=== PATIENT | male | born 1945 | race Caucasian/White ===

== ENCOUNTER 2020-07-21 11:55 | Outpatient (CLI) | payer MEDICARE | END 2020-07-21 11:56 | disposition home or self-care (01) | LOC: CSHLAB 11:55 | PROVIDERS: ATTEND Orthopaedic Surgery | DX: Z01.812 Encounter for preprocedural laboratory examination (principal); Z20.822 Contact with and (suspected) exposure to COVID-19; M54.16 Radiculopathy, lumbar region; S32.049S Unspecified fracture of fourth lumbar vertebra, sequela | CPT/HCPCS: 85610; 85730; 86850; 86900; 86901; 87635; U0003; U0005 ==

== ENCOUNTER 2020-07-26 05:44 | Day surgery (SDC) | payer MEDICARE ==
[2020-07-21 14:55] LABS: PTT 27.2 sec (22.0-33.0); Prothrombin Time 11.4 sec (9.5-12.1)
[2020-07-21 21:52] LABS: SARS-CoV-2 PCR by NAA Not Detected (NotDetected)
[2020-07-25 15:21] VITALS: BMI 25.4
[2020-07-26] MEDS ORDERED: Bupivacaine 0.25% HCL 30 ML VIAL ONE (06:30)
[2020-07-26] MEDS ORDERED: Thrombin 5000 UNITS/5 ML VIAL ONE ×2 (06:30→06:58)
[2020-07-26] MEDS ORDERED: EPINEPHrine 1 MG/ML AMP ONE (06:30)
[2020-07-26] MEDS ORDERED: Midazolam HCl 2 mg/2 ml Vial ONE (06:34)
[2020-07-26] MEDS ORDERED: Ondansetron PF 4 MG/2 ML Vial ONE (06:34)
[2020-07-26] MEDS ORDERED: Lidocaine 1% PF 5 ML VIAL ONE (06:34)
[2020-07-26] MEDS ORDERED: Dexamethasone 4 mg/ml Vial ONE (06:34)
[2020-07-26] MEDS ORDERED: PROPOFOL 20 ML ONE (06:34)
[2020-07-26] MEDS ORDERED: Fentanyl 100 MCG/2 ML VIAL ONE ×3 (06:34→12:15)
[2020-07-26] MEDS ORDERED: Rocuronium Bromide 10 MG/ML (10ML VIAL) ONE (06:34)
[2020-07-26] MEDS ORDERED: Lidocaine 1% MPF 2 ML VIAL ONE (06:39)
[2020-07-26] MEDS ORDERED: Famotidine/PF 20 mg/2ml Vial ONE (06:39)
[2020-07-26] MEDS ORDERED: Phenylephrine 10 MG/ML VIAL ONE (06:54)
[2020-07-26] MEDS ORDERED: Propofol 1,000 MG/100 ML VIAL IV ONE (06:56)
[2020-07-26] MEDS ORDERED: CEFAZOLIN 1 GM VIAL ONE (10:54)
[2020-07-26] MEDS ORDERED: Iopamidol 45 ML ONE (11:03)
[2020-07-26] MEDS ORDERED: SUGAMMADEX SODIUM 500 MG/5 ML VIAL ONE (11:25)
[2020-07-26] MEDS ORDERED: Meperidine HCl/PF 25 MG/ML VIAL ONE (11:32)
== END 2020-07-26 13:50 | disposition home or self-care (01) ==
LOC: CSHSDC 05:44
PROVIDERS: ATTEND Orthopaedic Surgery
DX: M54.16 Radiculopathy, lumbar region (principal); M54.5 Low back pain; S32.049S Unspecified fracture of fourth lumbar vertebra, sequela; Z79.899 Other long term (current) drug therapy; Z20.822 Contact with and (suspected) exposure to COVID-19
CPT/HCPCS: 22514; 63030; 63035; 72110; 76000; 85610; 85730; 86850; 86900; 86901; 88307; 88311; 88342; C1713 ×2; U0003; U0005; 87635; J0171; J0690; J1100; J2175; J2250; J2370; J2405; J2704; J3010; Q9967; S0020; S0028